=== PATIENT | female | born 1940 | race Hispanic/Latino ===

== ENCOUNTER 2021-02-12 13:22 | Outpatient (CLI) | payer MEDICARE | END 2021-02-12 13:23 | disposition home or self-care (01) | LOC: CSHMRI 13:22 | PROVIDERS: ATTEND Specialist | DX: G43.709 Chronic migraine without aura, not intractable, without status migrainosus (principal); H53.8 Other visual disturbances; I67.9 Cerebrovascular disease, unspecified | CPT/HCPCS: 70553; 82565 ==